=== PATIENT | male | born 1965 ===

== ENCOUNTER 2021-11-23 20:21 | Outpatient (REF) | payer BC, SELFPAY ==
[2021-11-23 21:23] LABS: Cholesterol 159 mg/dL (<200); Triglyceride 75 mg/dL (<150)
[2021-11-23 21:45] LABS: Calculated LDL 86 mg/dL (<100); HDL Cholesterol 58 mg/dL (40-60)
[2021-11-25 09:57] LABS: Hepatitis C Ab w Rflx HCV PCR Negative (Negative)
== END 2021-11-23 20:22 | disposition home or self-care (01) ==
LOC: NCHCN 20:21
PROVIDERS: Visit Provider Registered Nurse
DX: Z00.00 Encounter for general adult medical examination without abnormal findings (principal); Z13.220 Encounter for screening for lipoid disorders; Z11.59 Encounter for screening for other viral diseases
CPT/HCPCS: 80061; 86803; 87086